=== PATIENT | female | born 1945 | race Caucasian/White ===

== ENCOUNTER 2022-10-06 14:04 | Emergency (ER) | payer OTHER, SELFPAY ==
[2022-10-06 14:05] VITALS: BP 163/73; PULSE 83; RESP 14; TEMP 36.1; O2SAT 97; BMI 20.9
--- NOTE | 2022-10-06 14:25 | ED.RN ---
CHRONIC SHAKING OFF AND ON. FELL FEW TIMES. PT REPORTS SOB FOR PAST WEEK OR SO. REPORTS INCREASED WORK OF BREATHING WITH ACTIVITY ESPECIALLY STAIRS.
--- NOTE | 2022-10-06 14:34 | EKG12_ITS ---
Test Reason : DIZZY Blood Pressure : / mmHG Vent. Rate : 061 BPM Atrial Rate : 061 BPM P-R Int : 188 ms QRS Dur : 088 ms QT Int : 430 ms P-R-T Axes : 048 004 093 degrees QTc Int : 432 ms Normal sinus rhythm Nonspecific ST and T wave abnormality Abnormal ECG Confirmed by LIONEL SMITH, CONRADO ([id number]), news assignment editor TONY HOGAN ([id number]) on 10/08/2022 9:49:01 AM Referred By: Confirmed By:LEANDRA FLOWERS MD
--- NOTE | 2022-10-06 14:35 | CT_ITS ---
INDICATION: seizure-like activity EXAMINATION: CT BRAIN - CT Head or Brain W/O Contrast Injection TECHNIQUE: Multiple axial images were obtained of the head without intravenous contrast. A radiation dose optimization technique was used for this scan. IV Contrast dosage and agent: None. COMPARISON: 07/12/2017 FINDINGS: BRAIN PARENCHYMA: No intra- or extra-axial hemorrhage. No evidence of acute infarct. No intracranial mass or mass effect. Posterior fossa structures are unremarkable. Volume loss with low attenuation of the periventricular white matter typical of chronic small vessel disease. CSF SPACES: Appropriate for age. No hydrocephalus. Basal cisterns are patent. CALVARIUM, SKULL BASE, PARANASAL SINUSES AND MASTOID AIR CELLS: Clear. No discrete lytic or blastic abnormalities. CT/Brain/Head without Contrast IMPRESSION: Volume loss with chronic white matter changes. No acute intracranial findings. Electronically Signed: Jeffery Rosenberg MD at 15:31 EDT ,
--- NOTE | 2022-10-06 14:36 | RAD_ITS ---
INDICATION: chest pain EXAMINATION/TECHNIQUE: X-RAY - XR Chest 2 Views COMPARISON: 07/12/2017 FINDINGS: LINES/DEVICES: None. LUNGS: No consolidation, edema or effusion. No pneumothorax. MEDIASTINUM AND CARDIOVASCULAR STRUCTURES: Cardiac silhouette not enlarged. Central airways and mediastinal contour are unremarkable. BONES AND SOFT TISSUES: Unremarkable. RAD/Chest PA and Lateral IMPRESSION: No radiographic evidence of acute cardiopulmonary disease. Electronically Signed: Jeffery Rosenberg MD at 15:26 EDT ,
[2022-10-06 14:51] LABS: Absolute Lymphocyte Count 0.89 X10^3/uL (0.83-4.51); Absolute Neutrophil Count 5.5 X10^3/uL (2.0-7.7); Basophil# 0.03 X10^3/uL; Basophil% 0.4 % (0-1); Eosinophil# 0.06 X10^3/uL; Eosinophils% 0.9 % (0-5); Hematocrit 34.4 % (37-47); Hemoglobin 11.6 g/dL (12.0-15.0); Lymphocyte # 0.89 X10^3/ul (0.83-4.51); Lymphocyte % 12.7 % (19-41); Mean Corp Hgb Conc 33.7 g/dL (32-36); Mean Corpuscular Hgb 29.7 pg (27.0-32.0); Mean Platelet Vol. 8.5 fl (6.2-12.0); Monocyte# 0.58 X10^3/uL; Monocyte% 8.3 % (0-10); NRBC Flagged by Analyzer 0 % (0-5); Neutrophil # 5.45 X10^3/uL (2.7-7.7); Neutrophil % 77.4 % (47-70); Platelet Count 330 K/mm3 (150-450); RBC Distribution Width CV 13.2 % (11.6-14.6); RBC Distribution Width SD 42.5 fl (35.1-43.9); Red Blood Count 3.91 M/mm3 (4.2-5.4)
[2022-10-06 15:06] LABS: Anion Gap 8 (5-15); BUN 27 mg/dL (7-18); BUN/Creat Ratio 16.9 RATIO (10-20); Calcium,Total 10.1 mg/dL (8.5-10.1); Chloride 104 mmol/L (98-107); EST Glomerular Filtration Rate 33 mL/min (>60); Est Glom Filt Rate - Afr Amer 40 mL/min (>60); Estimated Creatinine Clearance 21.49 ml/min; Glucose 178 mg/dL (74-106); Potassium 4.1 mmol/L (3.5-5.1); Sodium Level 138 mmol/L (136-145); Troponin-I HS 8 pg/mL (3.0-54.0)
[2022-10-06 15:22] LABS: BNP,B-Type NATRIURETIC PEPTIDE 20.7 pg/mL (0-100)
--- NOTE | 2022-10-06 15:52 | EX.ED.DYSGE1 ---
HPI History of Present Illness Chief Complaint: Dizziness Informant: patient and family Onset/Context/Timing Onset: Weeks (3) Timing: Intermittent Narrative Narrative: This patient is brought in by her family for episodes of shaking all over but seems mostly in her upper extremities, also includes her lower she has never lost postural stability when walking, and no episodes of loss of consciousness with any of this. The episodes are brief, all less than a minute. She states earlier she was having chest discomfort but that is resolved now, felt like tightness and/or heaviness across her substernal area. That discomfort has been exertional and goes away when she rests, going on for several weeks as well. No pain at rest. Last for minutes. No known history of heart problems. No syncope or other associated symptoms. She saw someone at the counseling center for anxiety, suspecting this could be causing the symptoms, she has an appointment to see the doctor there but has not yet and has not had any medication changes recently, she was put on alprazolam to use during the day and at night for this. Family also concerned that in the past 2 or 3 nights she has not been able to sleep because of feeling anxious, possibly tremors, they are not exactly sure but they know she could use some rest. Has checked blood pressures during some of these episodes, as high as 150s but not higher than that. [facility] Medical History Depression Diabetes Hypertension Home Medications amlodipine 2.5 mg tablet 2.5 mg PO DAILY heart 07/12/17 [History Last Taken 07/11/17] aspirin 81 mg chewable tablet 81 mg PO DAILY heart 07/12/17 [History Last Taken 07/11/17] atorvastatin 80 mg tablet 80 mg PO QHS cholesterol 07/12/17 [History Last Taken 07/11/17] glimepiride 1 mg tablet 1 mg PO DAILY blood sugar 07/12/17 [History Last Taken 07/11/17] lisinopril 20 mg tablet 20 mg PO BID blood pressure 07/12/17 [History Last Taken 07/11/17] magnesium oxide 400 mg (241.3 mg magnesium) tablet (MgO) 400 mg PO DAILY supplement 07/12/17 [History Last Taken 07/11/17] meclizine 25 mg tablet 25 mg PO TID PRN PRN Vertigo #30 tabs 07/13/17 [Rx Last Taken Unknown] ondansetron HCl 4 mg tablet 4 mg PO Q8H PRN PRN Nausea/Vomiting #14 tabs 07/13/17 [Rx Last Taken Unknown] alprazolam 0.5 mg tablet 0.25 mg PO DAILY 10/06/22 [History Last Taken Unknown] alprazolam 0.5 mg tablet 0.5 mg PO QHS 10/06/22 [History Last Taken Unknown] temazepam 15 mg capsule (Restoril) 15 mg PO QHS PRN sleep #14 caps 10/06/22 [Rx Last Taken Unknown] Allergy/AdvReac Type Severity Reaction Status Date / Time No Known Allergies Allergy Verified 10/06/22 14:05 Social History Smoking Status: Never smoker ROS ROS ED Constitutional Constitutional ED: Denies chills or fever(s) Eyes Eyes: Denies change in vision or diplopia ENT ENT ED: Denies rhinorrhea or sore throat Cardiovascular Cardiovascular: Reports chest pain; Denies palpitations Respiratory/Chest Respiratory/Chest: Denies cough or dyspnea Gastrointestinal Gastrointestinal: Denies abdominal pain, diarrhea, nausea or vomiting Genitourinary Genitourinary ED: Denies dysuria or hematuria Musculoskeletal Musculoskeletal: Denies back pain or neck pain Integumentary Denies abscess or rash Neurologic Neurologic: Reports as per HPI, seizure-like activity and tremor(s); Denies abnormal speech, behavior changes, confusion, headache(s), paresthesias or weakness Psychiatric Psychiatric: Reports anxiety; Denies suicidal thoughts EXAM Physical Exam Const Vital Signs: 10/06/22 14:05 10/06/22 14:23 10/06/22 14:49 Temperature 97 F L Temperature Source Temporal Pulse Rate 83 Respiratory Rate 14 Respiratory Effort Short of Breath Respiratory Pattern Normal Blood Pressure 163/73 H Blood Pressure Mean 103 Pulse Ox 97 Oxygen Delivery Method Room Air Room Air 10/06/22 16:10 Temperature Temperature Source Pulse Rate 80 Respiratory Rate 16 Respiratory Effort Respiratory Pattern Blood Pressure 148/77 H Blood Pressure Mean 100 Pulse Ox 98 Oxygen Delivery Method Room Air Positive well nourished and well developed General Appearance ED: well developed and NAD HEENT Reports moist mucous membranes normocephalic and atraumatic Eyes PERRL and EOMs intact bilaterally Neck full ROM and supple Resp normal respiratory effort and clear to auscultation bilaterally Cardio regular rate, regular rhythm and no murmurs Rate: Negative for tachycardic GI non-tender and non-distended Auscultation: normoactive bowel sounds Palpation: soft Back/Spine no CVA tenderness General Back: other FROM Extremity normal to inspection General Extremety ED: Negative for edema, pulses abnormal or tenderness General Extremity: Negative for edema or pulses abnormal Neuro oriented x3, CN's II-XII intact bilaterally and no sensory deficits noted Neuro Narrative: Patient had a brief episode of myoclonus of both upper extremities simultaneously without any other areas of convulsion or loss of consciousness during my evaluation. Normal tone of all 4 extremities, full range of motion without difficulty. Sensorium / Orientation: awake and alert Motor Exam: strength 5/5 throughout Psych mental status grossly normal Skin no rashes or lesions noted and no wounds MDM MDM MDM Narrative Medical decision making narrative: EKG shows nothing acute and is unchanged, the rest of her studies are unremarkable except for mild acute kidney injury with a creatinine of 1.6 up from 1.02. She is not hyperkalemic. Troponin and BNP are within normal limits. Her symptoms are not consistent with pleuritic discomfort and I considered pulmonary embolus but I do not think that is what is going on here, she is not tachycardic, she is not on any AV gabino blockers, she is not hypoxic, does not have any signs of a DVT, nor any other risk factors for thromboembolic disease. Given all of this, and a CT head that is unremarkable, I think she can safely be discharged to follow-up as an outpatient. I reviewed the CT images, I agree with the radiologist interpretation that it is negative for any acute. Discussed with family. I did offer inpatient observation for stress testing if they wish to get it done now/soon, as I do recommend that she have stress test for her chest symptoms, however she and family declined and prefer to follow-up as an outpatient. They are concerned about her inability to sleep and would like something different for that. I did advise that they follow-up with counseling center to have an appointment with the doctor there in about 2 weeks, so I am okay trying Restoril each night making sure that they do not mix it with alprazolam, and taking care that it does not cause confusion, and if it does to discontinue it. They are okay with that. Lab Data Attestation: I reviewed the patient's lab results. Labs: Laboratory Results - last 24 hr 10/06/22 10/06/22 10/06/22 14:40 14:40 14:40 WBC 7.0 RBC 3.91 L Hgb 11.6 L Hct 34.4 L MCV 88.0 MCH 29.7 MCHC 33.7 RDW Std Deviation 42.5 RDW Coeff of Emma 13.2 Plt Count 330 MPV 8.5 Immature Gran % (Auto) 0.300 Neut % (Auto) 77.4 H Lymph % (Auto) 12.7 L Sullivan % (Auto) 8.3 Eos % (Auto) 0.9 Baso % (Auto) 0.4 Absolute Neuts (auto) 5.5 Absolute Lymphs (auto) 0.89 Nucleated RBC % 0 Sodium 138 Potassium 4.1 Chloride 104 Carbon Dioxide 26.0 Anion Gap 8 BUN 27 H Creatinine 1.60 H Estim Creat Clear Calc 21.49 Est GFR (MDRD) Af Amer 40 L Est GFR (MDRD) Non-Af 33 L BUN/Creatinine Ratio 16.9 Glucose 178 H Calcium 10.1 Troponin I High Sens 8 B-Natriuretic Peptide 20.7 Radiography Chest X-Ray - ED: 2 View, Read by ED Physician, No Acute Disease, Chronic Changes and No Infiltrates (and no CHF) Diagnostic Testing: Clinical Impression(s) from Imaging Studies Brain CT 10/06/22 14:35 IMPRESSION: Volume loss with chronic white matter changes. No acute intracranial findings. Electronically Signed: Jeffery Rosenberg MD at 15:31 EDT Reading Location ID and State: [facility] / [place] Tel , Service support , Chest X-Ray 10/06/22 14:36 IMPRESSION: No radiographic evidence of acute cardiopulmonary disease. Electronically Signed: Jeffery Rosenberg MD at 15:26 EDT , Rhythm Strip Rhythm Strip: Sinus Rhythm Rate: 65 Ectopy: None EKG Initial EKG: Attestation: I personally reviewed and interpreted this EKG as follows: Interpretation: Sinus Rhythm, No Acute Injury Pattern and Non-Specific ST Changes Prior EKG tracings: available for review Prior: Unchanged Discharge Plan Triage Chief Complaint: Dizziness ED Provider: Preston Marquez Dx/Rx/DC Orders Clinical Impression: Dizziness, Occasional tremors, Chest pain, Sleep deprivation, Anxiety Instructions: ED Chest Pain, Uncertain Cause Prescriptions: New temazepam [Restoril] 15 mg capsule 15 mg PO QHS PRN (Reason: sleep) Qty: 14 0RF No Action atorvastatin 80 MG tablet 80 mg PO QHS lisinopril 20 MG tablet 20 mg PO BID amlodipine 2.5 MG tablet 2.5 mg PO DAILY glimepiride 1 MG tablet 1 mg PO DAILY magnesium oxide [MgO] 400 MG tablet 400 mg PO DAILY aspirin 81 MG tablet,chewable 81 mg PO DAILY meclizine 25 MG tablet 25 mg PO TID PRN PRN (Reason: Vertigo) Qty: 30 0RF ondansetron HCl 4 MG tablet 4 mg PO Q8H PRN PRN (Reason: Nausea/Vomiting) Qty: 14 0RF alprazolam 0.5 mg tablet 0.25 mg PO DAILY Label Comments: TAKE 1/2 (ONE-HALF) TABLET BY MOUTH AT NOON AND 1 AT BEDTIME alprazolam 0.5 mg tablet 0.5 mg PO QHS Label Comments: TAKE 1/2 (ONE-HALF) TABLET BY MOUTH AT NOON AND 1 AT BEDTIME Primary Care Provider: James Limon Referrals: James Limon, DO [Primary Care Provider] - As soon as possible Activity Restrictions/Additional Instructions: Do not mix your alprazolam with the new prescription, so only take the new prescription at night Disposition Disposition: Home, Self Care
[2022-10-06 16:10] VITALS: BP 148/77; PULSE 80; RESP 16; O2SAT 98
== END 2022-10-06 16:47 | disposition home or self-care (01) ==
PROVIDERS: Emergency Provider Emergency Medicine; PCP Family Medicine; Visit Provider Emergency Medicine
DX: R42 Dizziness and giddiness (principal); E11.9 Type 2 diabetes mellitus without complications; Z72.820 Sleep deprivation; R07.9 Chest pain, unspecified; R25.1 Tremor, unspecified; F41.9 Anxiety disorder, unspecified; I10 Essential (primary) hypertension; Z79.82 Long term (current) use of aspirin; Z79.84 Long term (current) use of oral hypoglycemic drugs; Z79.899 Other long term (current) drug therapy
CPT/HCPCS: 70450; 71046; 80048; 83880; 84484; 85025; 93005; 99284